=== PATIENT | male | born 1950 | race Caucasian/White ===

== ENCOUNTER 2016-07-30 08:49 | Inpatient (IN) | payer MEDICARE, OTHER ==
[~2016-07-30 08:49] MED LIST: CALCIUM MAGNESIUM; LIPITOR40 M1 PO; PRILOSEC OTC20 M1 PO
[2016-07-31 05:17] LABS: BASO % 0.1 % (0-2); HCT-HEMATOCRIT 42.5 % (36.0-53.5); IMMATURE GRANULOCYTES ABSOLUTE 0.04 tho/cmm (0-0.03); IMMATURE GRANULOCYTES PERCENT 0.4 % (0-0.3); LYMPH % 8.6 % (20-45); MCH (MEAN CORPUSCULAR HGB) 29.9 pg (28.0-32.0); MCHC MEAN CORPUSCULAR HGB CONC 32.9 % (32.0-36.0); MCV (MEAN CELL VOLUME) 90.6 fl (82.0-96.0); MEAN PLATELET VOLUME 10.8 cmc (9.4-12.4); MONO % 14.2 % (0-12); MONOCYTE ABSOLUTE COUNT 1.6 tho/cmm (0.0-1.2); NEUTROPHIL ABSOLUTE COUNT 8.4 tho/cmm (1.6-8.0); NEUTROPHIL-AUTOMATED 8.4 tho/cmm (1.6-8.0); NEUTROPHILS % 76.7 % (40-80); PLATELET COUNT 229 tho/cmm (150-450); RED BLOOD COUNT 4.69 mil/cmm (4.40-5.70); RED CELL DISTRIBUTION WIDTH 12.8 % (12.4-16.4)
[2016-07-31 05:22] LABS: ANION GAP 11 mmol/L (0-20); BLOOD UREA NITROGEN 14 mg/dl (6-24); CALCIUM 8.9 mg/dl (8.5-10.5); CARBON DIOXIDE-VENOUS 29 mmol/L (22-32); CHLORIDE 105 mmol/l (96-110); CREATININE 1.03 mg/dl (0.60-1.30); GLUCOSE 156 mg/dL (70-110); POTASSIUM 4.8 mmol/L (3.7-5.1); SODIUM 140 mmol/L (135-145); eGFR VALUE FOR BLACK 87 mL/Min
[2016-08-02] MEDS ORDERED: ROBAXIN-750750 M1 PO (09:30)
[2016-08-02] MEDS ORDERED: NORCO 5-325 TA1 EACH PO (09:32)
[2016-08-02] MEDS ORDERED: TYLENOL325 M2 PO (09:32)
[2016-08-02] MEDS ORDERED: SENNA-S TABLET1 EAC3 PO (09:33)
== END 2016-08-02 13:30 | DRG 460 ==
LOC: SHSC 08:49 → ORE 11:24 → PACU 16:51 → 5EA 18:42
PROVIDERS: ADMIT Neurological Surgery
PROC: 8E0WXBZ Computer Assisted Procedure of Trunk Region (ICD-10-PCS; principal; 2016-07-30)
PROC: 0QB30ZZ Excision of Left Pelvic Bone, Open Approach (ICD-10-PCS; principal; 2016-07-30)
PROC: 0SG30A1 (ICD-10-PCS; principal; 2016-07-30)
DX: M48.06 Spinal stenosis, lumbar region (principal); I10 Essential (primary) hypertension; E78.5 Hyperlipidemia, unspecified; M43.16 Spondylolisthesis, lumbar region; M54.16 Radiculopathy, lumbar region
CPT/HCPCS: C1713; J0690; J1170; J2800; J3370